=== PATIENT | male | born 1960 | race Two or more races ===

== ENCOUNTER 2024-12-17 18:43 | Emergency (ER) | payer MEDICARE, OTHER ==
[~2024-12-17] VITALS: Ht 167.6 cm; Wt 62.6 kg
[2024-12-17 19:20] LABS: ABG BASE EXCESS 4.0 mmol/L (-2.0-3.0); ABG OXYGEN SATURATION 98.7 % (94.0-98.0); ABG PCO2 32.1 mmHg (35.0-48.0); ABG PH 7.529 (7.350-7.450); ABG PO2 138.2 mmHg (83.0-108.0); ABG TOTAL HEMOGLOBIN 13.9 G/dL (13.5-17.5); FRACTIONATED INSPIRED OXYGEN 35.0 %; SITE, ABG LEFT RADIAL
[2024-12-17] MEDS: ALBUTEROL FS 2.5 MG/3 ML VIAL.NEB NEB ONE (19:22)
[2024-12-17] MEDS ORDERED: ALBUTEROL FS 2.5 MG/3 ML VIAL.NEB ONE (19:25)
[2024-12-17] MEDS ORDERED: LORAZEPAM INJ 2 MG/ML VIAL ONE (19:28)
[2024-12-17] MEDS: IV NS 0.9% 250 ML BAG IV ONE (19:30)
[2024-12-17] MEDS: LORAZEPAM INJ 2 MG/ML VIAL IV ONE (19:35)
[2024-12-17 19:38] LABS: PLATELET COUNT (AUTO) 93 K/uL (150-450); RED BLOOD CELL COUNT(AUTO) 4.75 MIL/uL (4.5-6.0); RED CELL DISTRIBUTION WIDTH 15.6 % (11.5-15.0); WHITE BLOOD COUNT (AUTO) 4.6 K/uL (4.3-11.0)
[2024-12-17 19:40] LABS: CALCIUM, SERUM 9.0 mg/dL (8.5-10.1); CREATININE 0.6 mg/dL (0.6-1.3); SODIUM SERUM 140 mmol/L (136-145); UREA NITROGEN, BLOOD 16 mg/dL (7-18)
[2024-12-17 20:01] LABS: BASOPHILS % (MANUAL) 0 % (0.0-2.0); EOSINOPHILS % (MANUAL) 1 % (0-4); LYMPHOCYTES % (MANUAL) 48 % (16-48); NEUTROPHILS % (MANUAL) 41 (42-76)
[2024-12-17 20:09] LABS: MONOCYTES % (MANUAL) 10 % (0-11.0); PLATELET ESTIMATE DECREASED
[2024-12-17 21:02] VITALS: TEMP 98.1
[2024-12-17 21:29] VITALS: BP 101/70; O2SAT 99
== END 2024-12-17 21:29 | disposition home or self-care (01) ==
LOC: ER 18:57
DX: R06.02 Shortness of breath (principal); F41.9 Anxiety disorder, unspecified; I48.91 Unspecified atrial fibrillation
CPT/HCPCS: 99285; 96374; 71045; 96375; 93005; 82803; 85027; 80048; 85007; 36415; 84484; 83880; 36600; 94640; J2060; J7040; J2919